=== PATIENT | female | born 1940 | race Caucasian/White ===

== ENCOUNTER 2020-01-09 12:29 | Inpatient (IN) | payer OTHER ==
[~2020-01-09] VITALS: Ht 165.1 cm; Wt 53.5 kg
--- NOTE | 2020-01-09 13:00 | NUR ---
SIMULATION SOFTWARE ENGINEER NOTE- 79 Y/O FEMALE ADMITTED FOR SUICIDAL IDEATION. PT ON 5150 DTS DUE TO STATING SHE WANTED TO CUT HERSELF AND JUMP OUT OF A MOVING CAR. ON FACE TO FACE ASSESSMENT, PT IS CALM COOPERATIVE THOUGH KEEPS STATING THART Addendum: 01/09/20 at 1532 by VIELKA RODRIGUEZ RN ...STATING THAT SHE HAS NO IDEA WHY SHES HERE. PT STATES SHE WAS 'ONLY JOKING' ABOUT JUMPING OUT OF A CAR OR OFF A BRIDGE.' STATES SHE DOESNT WANT TO KILL HERSELF. PT DENIES SI HI AH VH AT PRESENT. PT HAS ONLY PAST MEDICAL HX OF PLEURAL EFFUSIONS, HYSTERECTOMY AND CHOLECYSTECTOMY. STATED SHE ONCE TOOK ANTI HYPERTENSIVE RX BUT DOESNT RECALL. VS- B/P- 150/77, HR- 67 RR-16, T- 98.3 SATURATION 94%. PT ACCU CHECK IS 102. COVID TEST NEGATIVE MRSA SWAB DONE. SKIN INTACT, PHOTOGRAPH TAKEN FOR CHART. PT RIGHTS PAMPHLET GIVEN. DR GUILLEN AWARE OF ADMISSION AND ORDERS RECEIVED AND COMPLIED WITH. PT ORIENTED TO UNIT. PT REPEATEDLY STATES "I GOT TO GET OUT OF HERE. I DONT BELONG HERE." CALM THERAPEUTIC ENVIRONMENT PROVIDED. NEEDS ATTENDED. LUNCH PROVIDED.
[2020-01-09] MEDS ORDERED: ESCI10TA PO (13:15)
[2020-01-09] MEDS ORDERED: AMLO5TAB9 MT (13:15)
[2020-01-09] MEDS ORDERED: ESOM40CA52 MT (13:15)
[2020-01-09] MEDS ORDERED: SIMV-46 MT (13:15)
[2020-01-09] MEDS ORDERED: MAG HYDROX/AL HYDROX/SIMETH 30 ML UDC PO PRN (14:30)
[2020-01-09] MEDS ORDERED: BLOOD SUGAR DIAGNOSTIC 1 EACH STRIP IN ONE (14:30)
[2020-01-09] MEDS ORDERED: MAGNESIUM HYDROXIDE 30 ML UDC PO PRN (14:30)
[2020-01-09 16:00] VITALS: BP 125/66
[2020-01-09] MEDS: LORAZEPAM 0.5 MG TABLET PO PRN ×2 (17:05→23:06)
--- NOTE | 2020-01-09 17:05 | NUR ---
RN NOTE- PT ANXIOUS CONTINUALLY ON PHONE TELLING PEOPLE TO COME HELP REMOVE HER. PACING HALLS AGITATED. ATIVAN 0.5 MG GIVEN
[2020-01-09 20:17] VITALS: BP 130/75
[2020-01-09] MEDS: ACETAMINOPHEN 325 MG TABLET PO PRN (21:13)
--- NOTE | 2020-01-09 21:14 | NUR ---
GPS RN NOTES: HEADACHE PT C/O OF HEADACHE. OFFERED TYLENOL 650MG PO PRN ORDERED. PT AGREED AND TOLERATED MED WELL. CONTINUE TO MONITOR.
--- NOTE | 2020-01-09 23:12 | NUR ---
GPS RN NOTES: ANXIOUS PT C/O FEELING ANXIOUS. PT REQUESTED ATIVAN. OFFERED ATIVAN 0.5 MG PO PRN ORDERED. PT TOLERATED WELL. CONTINUE TO MONITOR
[2020-01-10 06:39] LABS: CHOLESTEROL 159 mg/dL (<200); HDL CHOLESTEROL 61 mg/dL (40-60); LDL 92 mg/dL (0-99); TRIGLYCERIDES 121 mg/dL (30-150)
[2020-01-10 06:46] LABS: ALBUMIN 2.9 g/dL (3.4-5.0); BILIRUBIN,TOTAL 0.5 mg/dL (0.2-1.0); CREATININE 0.8 mg/dL (0.6-1.3); POTASSIUM 3.8 mmol/L (3.5-5.1); TOTAL PROTEIN, SERUM 6.1 g/dL (6.4-8.2)
[2020-01-10 08:00] VITALS: BP 145/66
--- NOTE | 2020-01-10 08:10 | NUR ---
UR NOTE: AUTH# [id number] OBTAINED FROM AL Waggoner WITH [employer] UR [phone]. 8 DAYS APPROVED FROM 01/09/2020 TO 01/16/2020. BOARDER HAND ASSIGNED: CHAU Mcintyre @ [phone]. NO FAX#.
[2020-01-10] MEDS: AMLODIPINE BESYLATE 5 MG TABLET PO SCH (09:13)
--- NOTE | 2020-01-10 11:19 | NUR ---
FAMILY CONTACT: SW received a call from pts daughter Bartolome [phone] stating that pt is an alcoholic and needs inpatient rehab. She states that pt lives at home with her son and family is unable to care for her due to her alcoholism and manipulative behavior. Daughter states that pt often threatens suicide and last week attempted to jump out of her car. Daughter states that if pt does not accept rehab then the family will not be able to house and help her. Daughter states that if pt refuses to go to rehab then pt can be discharge to a homeless group home. SW stated that she will provide substance abuse intervention to pt and provide pt with this information.
--- NOTE | 2020-01-10 12:24 | NUR ---
INITIAL DISCHARGE PLAN: Pt wishes to be discharged to an Impatient Treatment program. SW will refer pt to [facility]. CHANDLER will help form a safe and proper discharge in collaboration with .
--- NOTE | 2020-01-10 12:51 | NUR ---
INDIVIDUAL INTERVENTION: Pt approached SW in a confused and disorganized state, asking where she is and how long she needs to be here. Pt did not recall speaking to SW earlier this day.
--- NOTE | 2020-01-10 15:44 | NUR ---
INDIVIDUAL INTERVENTION: Pt approached SW to ask why she is here and that she wants to go home. SW explained the reason she is here and also informed her that she was informed by the SW and MD several times today. SW explained to pt that she will be hospitalized several days and that she cannot be discharged home due to her children not being able to care for her due to her alcohol abuse and frequent suicidal statements. Pt appears confused and disorganized and has no insight into her mental illness. Pt also has limited boundaries and is constantly knocking on SW office.
[2020-01-10 16:00] VITALS: BP 125/73
[2020-01-10] MEDS: LORAZEPAM 0.5 MG TABLET PO PRN ×2 (16:34→22:35)
[2020-01-10] MEDS: GABAPENTIN 100 MG CAPSULE PO SCH (16:34)
--- NOTE | 2020-01-10 16:35 | NUR ---
RN NOTE: ANXIETY PT C/O INCREASED ANXIETY. REQUESTING ATIVAN. ATIVAN 0.5MG PRN PO
[2020-01-10] MEDS: SIMVASTATIN 20 MG TABLET PO SCH (17:06)
--- NOTE | 2020-01-10 19:38 | NUR ---
RN NOTES PATIENT AWAKE, WALKING HALLWAYS. ALERT AND ORIENTED X 3. SHOWS NO SIGNS OF ACUTE DISTRESS. FORGETFUL AT TIMES, DEMANDING, ANXIOUS, AND RESTLESS. PT IS AMBULATORY AND STEADY. BED IN LOWEST POSITION, LOCKED, AND WILL CONTINUE TO MONITOR.
[2020-01-10 20:40] VITALS: BP 145/66
[2020-01-10] MEDS ORDERED: GABAPENTIN 100 MG CAPSULE PO SCH (22:00)
[2020-01-10] MEDS: TEMAZEPAM 7.5 MG CAPSULE PO PRN (22:04)
--- NOTE | 2020-01-10 22:04 | NUR ---
RN NOTES PATIENT REQUEST MEDICATION TO HELP FOR SLEEP. GIVEN PRN RESTORIL AT 2204. WILL CONTINUE TO MONITOR.
--- NOTE | 2020-01-10 22:35 | NUR ---
RN NOTES PATIENT FELT ANXIOUS, ASKED FOR ATIVAN. GIVEN PRN ATIVAN AT 2235. WILL CONTINUE TO MONITOR
[2020-01-11 08:00] VITALS: BP 137/86
[2020-01-11] MEDS ORDERED: busPIRone 5 MG TABLET PO SCH (09:00)
[2020-01-11] MEDS: GABAPENTIN 100 MG CAPSULE PO SCH ×3 (09:03→21:02)
[2020-01-11] MEDS: AMLODIPINE BESYLATE 5 MG TABLET PO SCH (09:05)
[2020-01-11] MEDS: LORAZEPAM 0.5 MG TABLET PO PRN ×2 (13:00→19:55)
--- NOTE | 2020-01-11 13:01 | NUR ---
rn note :patient c/o anxiety medicated with ativan 0.5mg x1, will continue to monitor .
--- NOTE | 2020-01-11 14:17 | NUR ---
INDIVIDUAL INTERVENTION: Pt has no insight and is anxious. Pt has poor boundaries and has been constantly going to the nurses station to ask the same questions. SW is unable to have a meaningful conversation with pt as pt does not retain the information given to her and is not easily redirectable. Pt presents confused, disorganized, and disoriented.
[2020-01-11 16:00] VITALS: BP 146/76
[2020-01-11] MEDS: SIMVASTATIN 20 MG TABLET PO SCH (17:05)
[2020-01-11] MEDS: busPIRone 5 MG TABLET PO SCH (17:05)
[2020-01-11 19:36] LABS: APPEARANCE,URINE CLEAR (CLEAR); BILIRUBIN,URINE NEGATIVE (NEGATIVE); BLOOD, URINE TRACE-INTA Ery/uL (NEGATIVE); COLOR,URINE YELLOW (YELLOW); KETONES,URINE NEGATIVE (NEGATIVE); LEUKOCYTE ESTERASE ,URINE SMALL (NEGATIVE); NITRITE, URINE POSITIVE (NEGATIVE); PROTEIN,URINE NEGATIVE (NEGATIVE); UGLUCOSE NEGATIVE (NEGATIVE); UROBILINOGEN,URINE 0.2 EU/dL (0.2)
--- NOTE | 2020-01-11 19:55 | NUR ---
GPS RN NOTE: ANXIETY PT. C/O OF BEING ANXIOUS. ADMINISTERED ATIVAN 0.5 MG PO PRN ORDERED. WILL CONTINUE TO MONITOR FOR SAFETY AND BEHAVIOR.
[2020-01-11 20:06] VITALS: BP 115/64
[2020-01-11 20:13] LABS: BACTERIA,URINE 2+ /HPF (None Seen); RBC,URINE 0-2 /HPF (0-2); SQUAMOUS EPITHELIAL CELL,UR Few /HPF (None Seen); WBC,URINE 51-80 /HPF (0-3)
[2020-01-11] MEDS: ACETAMINOPHEN 325 MG TABLET PO PRN (22:21)
--- NOTE | 2020-01-11 22:21 | NUR ---
GPS RN NOTE: PAIN PT. C/O OF HEADACHE. ADMINISTERED TYLENOL 650 MG PO PRN ORDERED. WILL CONTINUE TO MONITOR FOR SAFETY AND BEHAVIOR
[2020-01-12 08:00] VITALS: BP 121/76
[2020-01-12] MEDS: busPIRone 5 MG TABLET PO SCH ×3 (08:30→16:26)
[2020-01-12] MEDS: AMLODIPINE BESYLATE 5 MG TABLET PO SCH (08:31)
[2020-01-12] MEDS: GABAPENTIN 100 MG CAPSULE PO SCH ×3 (08:31→21:38)
--- NOTE | 2020-01-12 08:42 | NUR ---
SNF REFERRAL: CHANDLER faxed SNF referral to [facility] Address: [address], [place] [address] for review.
--- NOTE | 2020-01-12 10:53 | NUR ---
SNF REFERRAL: SW received a call form gabriela Han at [facility] Address: [address] [place] [address] stating pt cannot be accepted due to her being an elopement risk and ambulatory.
[2020-01-12] MEDS: NITROFURANTOIN/NITROFURAN MAC 100 MG CAPSULE PO SCH ×2 (11:39→20:41)
--- NOTE | 2020-01-12 14:22 | NUR ---
REFERRAL: CHANDLER faxed referral to [facility] Address: [address] [place] [address] for review.
--- NOTE | 2020-01-12 14:26 | NUR ---
UR NOTE: SW contacted [employer] AIR CONDITIONING ENGINEER ASSIGNED: CHAU Shin [phone] and left a voicemail informing her pt needs SNF placement.
[2020-01-12] MEDS: SERTRALINE HCL 25 MG TABLET PO SCH (14:36)
--- NOTE | 2020-01-12 14:52 | NUR ---
INDIVIDUAL INTERVENTION: Pt has no insight and is anxious. Pt is cognitively impaired and has poor memory. SW is unable to engage pt in a meaningful conversation.
--- NOTE | 2020-01-12 15:52 | NUR ---
[facility]: SW received a call from [facility] Address: [address] [place] [address] stating that due to pts age and frequent hospitalizations within the last 6 months she does not qualify for inpatient treatment at their facility. Per intake, pts insurance also does not cover.
--- NOTE | 2020-01-12 15:54 | NUR ---
FAMILY CONTACT: CHANDLER contacted pts daughter Bartolome [phone] and attempted to leave a voicemail regarding pts discharge disposition. SW was unable to leave a voicemail due to mailbox being full. CHANDLER will try again at a later time.
[2020-01-12 16:00] VITALS: BP 133/74
--- NOTE | 2020-01-12 16:09 | NUR ---
FAMILY CONTACT: CHANDLER contacted pts daughter Janiya [phone] to discuss pts discharge disposition. CHANDLER was unable to leave a message due to mailbox being full.
--- NOTE | 2020-01-12 16:22 | NUR ---
FAMILY CONTACT: CHANDLER contacted pts daughter Bartolome [phone] and discussed pts discharge disposition. SW informed her that she is unable to place pt at a SNF or at a residential treatment facility. Daughter states that she is not responsible for pt and does not care what happens to her. Daughter states that none of pts children are willing to accept pt back into their homes and states that if need be pt can be discharged to a homeless retirement. CHANDLER recommended pt be discharged to a board and care or independent living and daughter stated that she is okay with that option and will stop making pts mortgage payments so that pt can have somewhere to live. Daughter states pt makes $1300 in SSI. SW stated that she will attempt to place pt at a board and care or independent living facility and daughter agreed. Addendum: 01/13/20 at 0819 by SURESH ARTEAGA CHANDLER informed daughter that abandoning pt can be reportable to APS. Daughter stated, "I know the law I cannot be held responsible for my adult mother."
[2020-01-12] MEDS: SIMVASTATIN 20 MG TABLET PO SCH (18:01)
[2020-01-12 20:00] VITALS: BP 149/85
[2020-01-12] MEDS: LORAZEPAM 0.5 MG TABLET PO PRN (20:41)
--- NOTE | 2020-01-12 20:44 | NUR ---
GPS RN NOTES: PT WAS ANXIOUS, RESTLESS, STATED "I WANT SOMETHING TO HELP MY ANXIETY NOW, AND SLEEPING PILLS LATER". ATIVAN 0.5MG 1 TAB GIVEN PO ORDERED AT 0840. WILL CONTINUE TO MONITOR.
[2020-01-12 20:45] VITALS: BP 149/85
[2020-01-12] MEDS: TEMAZEPAM 7.5 MG CAPSULE PO PRN (21:38)
[2020-01-12] MEDS ORDERED: MEMANTINE HCL 5 MG TABLET PO SCH (22:00)
[2020-01-13 07:04] VITALS: BP 149/85
[2020-01-13 08:00] VITALS: BP 127/77
--- NOTE | 2020-01-13 08:27 | NUR ---
APS: SW completed online APS report (Intake ID # [id number]) due to abandonment. Pts daughter informed SW that she nor pts children wanted to make themselves responsible for pt. SW explained that due to limited resources and pts lack of insurance coverage for placement SW is unable to place pt. Daughter stated that she is not responsible for pt and that she did not care where pt was placed and if need be pt can be discharged to a homeless mcfp. SW explained that pt has cognitive issues and daughter stated she did not care.
--- NOTE | 2020-01-13 08:30 | NUR ---
SNF REFERRAL: CHANDLER faxed SNF referral to [facility] ([facility]) [address] [address] for review.
[2020-01-13] MEDS: AMLODIPINE BESYLATE 5 MG TABLET PO SCH (08:55)
[2020-01-13] MEDS: busPIRone 5 MG TABLET PO SCH ×3 (08:55→16:52)
[2020-01-13] MEDS: GABAPENTIN 100 MG CAPSULE PO SCH ×4 (08:55→21:45)
[2020-01-13] MEDS: NITROFURANTOIN/NITROFURAN MAC 100 MG CAPSULE PO SCH ×2 (08:55→20:25)
--- NOTE | 2020-01-13 08:57 | NUR ---
GPS/RN-NOTES PT. C/O CONSTIPATION AND REQUESTING LAXATIVE. MOM 30ML GIVEN PRN ORDER WILL CONT. MONITORING FOR SAFETY.
[2020-01-13] MEDS: SERTRALINE HCL 25 MG TABLET PO SCH (12:21)
[2020-01-13 16:00] VITALS: BP 144/73
[2020-01-13] MEDS: SIMVASTATIN 20 MG TABLET PO SCH (17:21)
[2020-01-13 20:00] VITALS: BP 142/76
[2020-01-13] MEDS: QUETIAPINE FUMARATE 25 MG TABLET PO SCH (20:24)
[2020-01-13] MEDS: LORAZEPAM 0.5 MG TABLET PO PRN (21:02)
--- NOTE | 2020-01-13 21:03 | NUR ---
GPS RN NOTES: PT COMPLAINED OF ANXIETY AND RATES ANXIETY LEVEL 7/10. ATIVAN 0.5MG 1 TAB GIVEN PO ORDERED. PT CURRENTLY IN HALLWAY TALKING ON THE PHONE. WILL CONTINUE TO MONITOR.
[2020-01-13] MEDS: MEMANTINE HCL 5 MG TABLET PO SCH (21:45)
[2020-01-13] MEDS: TEMAZEPAM 7.5 MG CAPSULE PO PRN (22:25)
--- NOTE | 2020-01-14 06:38 | NUR ---
GPS RN CLOSING NOTE: PT LAYING IN BED SLEEPING. RESPIRATION EVEN AND UNLABORED WITH EQUAL RISE AND FALL OF THE CHEST ON ROOM AIR. NO S/S OF ANY DISTRESS AT THIS TIME. ENDORSING TO AM SHIFT.
[2020-01-14 08:00] VITALS: BP 135/67
[2020-01-14] MEDS: GABAPENTIN 100 MG CAPSULE PO SCH ×4 (08:30→22:30)
[2020-01-14] MEDS: busPIRone 5 MG TABLET PO SCH ×3 (08:30→16:36)
[2020-01-14] MEDS: AMLODIPINE BESYLATE 5 MG TABLET PO SCH (08:30)
[2020-01-14] MEDS: NITROFURANTOIN/NITROFURAN MAC 100 MG CAPSULE PO SCH ×2 (08:30→21:51)
[2020-01-14] MEDS: MEMANTINE HCL 5 MG TABLET PO SCH ×2 (08:30→21:51)
[2020-01-14] MEDS: SERTRALINE HCL 25 MG TABLET PO SCH (12:40)
[2020-01-14 16:00] VITALS: BP 144/74
[2020-01-14] MEDS: SIMVASTATIN 20 MG TABLET PO SCH (17:30)
[2020-01-14 20:00] VITALS: BP 128/64
[2020-01-14 20:26] VITALS: BP 128/64
[2020-01-14] MEDS: QUETIAPINE FUMARATE 25 MG TABLET PO SCH (21:05)
[2020-01-14] MEDS: TEMAZEPAM 7.5 MG CAPSULE PO PRN (23:20)
--- NOTE | 2020-01-14 23:21 | NUR ---
GPS RN NOTE: INSOMNIA PATIENT VERBALIZED THAT SHE IS UNABLE TO SLEEP & REQUESTED TO TAKE SLEEPING MEDICINE. PRN RESTORIL 7.5 MG 1 CAP PO GIVEN ORDERED. WILL CONTINUE TO MONITOR FOR EFFECTIVENESS.
[2020-01-15] MEDS: ACETAMINOPHEN 325 MG TABLET PO PRN (02:01)
--- NOTE | 2020-01-15 02:03 | NUR ---
GPS RN NOTE: PRN TYLENOL GIVEN FOR HEADACHE PATIENT VERBALIZED THAT SHE HAS HEADACHE & WANTED TO TAKE TYLENOL. PRN TYLENOL 650 MG PO GIVEN ORDERED. WILL CONTINUE TO MONITOR.
[2020-01-15 08:00] VITALS: BP 143/75
[2020-01-15] MEDS: NITROFURANTOIN/NITROFURAN MAC 100 MG CAPSULE PO SCH ×2 (08:20→21:14)
[2020-01-15] MEDS: busPIRone 5 MG TABLET PO SCH ×3 (08:20→16:53)
[2020-01-15] MEDS: AMLODIPINE BESYLATE 5 MG TABLET PO SCH (08:20)
[2020-01-15] MEDS: MEMANTINE HCL 5 MG TABLET PO SCH ×2 (08:20→21:14)
[2020-01-15] MEDS: GABAPENTIN 100 MG CAPSULE PO SCH ×4 (08:20→22:10)
--- NOTE | 2020-01-15 09:00 | NUR ---
MARIA E NOTE0 Addendum: 01/15/20 at 0944 by VIELKA RODRIGUEZ RN RN NOTE- 899 - PT IN BED COOPERATIVE CALM QUESTIONING MEDICATIONS THOUGH REMAINS MED COMPLIANT TALKING ABOUT DC AND CONCERNED 'NO ONE WANTS ME AROUND' STATES SHE 'NEEDS TO FIND A PLACE THAT WILL TAKE HER' STATED 'I NEED TO STOP DRINKING WINE'. ENCOURAGING INTERACTION AND ADLS. DENIES SI HI AH VH PO INTAKE FAIR
[2020-01-15] MEDS: SERTRALINE HCL 25 MG TABLET PO SCH (12:51)
[2020-01-15 16:00] VITALS: BP 142/73
[2020-01-15] MEDS: SIMVASTATIN 20 MG TABLET PO SCH (17:41)
[2020-01-15] MEDS: QUETIAPINE FUMARATE 25 MG TABLET PO SCH (20:03)
[2020-01-15 21:17] VITALS: BP 134/72
[2020-01-15] MEDS: TEMAZEPAM 7.5 MG CAPSULE PO PRN (23:11)
--- NOTE | 2020-01-15 23:13 | NUR ---
GPS RN NOTE: INSOMNIA PATIENT VERBALIZED THAT SHE IS UNABLE TO SLEEP & REQUESTED TO TAKE SLEEPING MEDICINE, PRN RESTORIL 7.5 MG 1 CAP PO GIVEN ORDERED. WILL CONTINUE TO MONITOR FOR THE EFFECTIVENESS.
[2020-01-16 08:00] VITALS: BP 122/57
[2020-01-16] MEDS: MEMANTINE HCL 5 MG TABLET PO SCH ×2 (08:01→20:26)
[2020-01-16] MEDS: busPIRone 5 MG TABLET PO SCH ×3 (08:01→17:03)
[2020-01-16] MEDS: NITROFURANTOIN/NITROFURAN MAC 100 MG CAPSULE PO SCH ×2 (08:01→20:25)
[2020-01-16] MEDS: AMLODIPINE BESYLATE 5 MG TABLET PO SCH (08:01)
[2020-01-16] MEDS: GABAPENTIN 100 MG CAPSULE PO SCH ×4 (08:01→22:04)
--- NOTE | 2020-01-16 08:24 | NUR ---
SNF REFERRAL: CHANDLER faxed SNF referral to Gume, student admissions clerk at [facility] Address: [address], [place] [address] for review.
--- NOTE | 2020-01-16 08:26 | NUR ---
UR NOTE: SW contacted the [employer] discharge planning line [phone] and left a voicemail requested assistance with placement.
--- NOTE | 2020-01-16 08:45 | NUR ---
INDIVIDUAL INTERVENTION: SW and SW Director met with pt at bedside to discuss pts placement options.
--- NOTE | 2020-01-16 09:00 | NUR ---
RN NOTE-M PT FAIRLY CONCERNED [facility]. STATES 'FAMILY DOESNT WANT ME IM A PAIN I DRINK WINE' ENCOURAGED PT AND ASSISTED. MED COMPLIANT INTAKE GOOD DENIES ALL
--- NOTE | 2020-01-16 09:00 | NUR ---
REFERRAL: CHANDLER faxed referral to [facility] Address: [address], [place] [address] for review.
--- NOTE | 2020-01-16 09:02 | NUR ---
UR NOTE: SW contacted [employer] FICTION AND NONFICTION AUTHOR ASSIGNED: CHAU Shin [phone] and completed concurrent review via voicemail.
--- NOTE | 2020-01-16 09:19 | NUR ---
SNF REFERRAL: CHANDLER faxed SNF referral to Molly implementation project coordinator at [facility] ([facility]) [address] [address] for review.
--- NOTE | 2020-01-16 09:29 | NUR ---
UR NOTE: CHANDLER received a call from [facility] LOOP SEWER ASSIGNED: CHAU Shin [phone] stating pt has been approved 3 additional days from 01/16/20-01/19/20 with review due on 01/19/20.
--- NOTE | 2020-01-16 11:05 | NUR ---
RN-CO: COVID TEST ORDERED A REQUIREMENT FOR SNF PLACEMENT.
--- NOTE | 2020-01-16 11:27 | NUR ---
FAMILY CONTACT: CHANDLER contacted pts daughter Bartolome [phone] and left a voicemail informing her [facility] is considering accepting pt and will be calling her to verify finances.
--- NOTE | 2020-01-16 11:49 | NUR ---
SNF REFERRAL: SW faxed SNF referral to [facility] ([facility]) Address: [address] [place] [address] for review.
--- NOTE | 2020-01-16 11:50 | NUR ---
SNF REFERRAL: SW received a call from Gume, home coordinator at [facility] Address: [address] [place] [address] stating pt was not accepted to the facility due to having no insurance coverage.
--- NOTE | 2020-01-16 12:24 | NUR ---
FAMILY CONTACT: CHANDLER received a call from pts daughter Bartolome [phone] confirming that she spoke with Molly, life skills coordinator volunteer at [facility]. She states she agrees with share of cost and agrees with discharge plan. CHANDELR informed her that she is waiting on confirmation from Molly for approval and also informed her that MARIAH has approved 3 additional days with review due on 01/16/20.
[2020-01-16] MEDS: SERTRALINE HCL 25 MG TABLET PO SCH (12:47)
--- NOTE | 2020-01-16 14:38 | NUR ---
APS: CHANDLER received a call from [facility] forensic social worker Marino [phone] requesting discharge information. SW stated that discharge plan has not been confirmed and SW will call once discharge plan has been confirmed.
[2020-01-16 16:00] VITALS: BP 144/90
[2020-01-16] MEDS: SIMVASTATIN 20 MG TABLET PO SCH (17:03)
[2020-01-16] MEDS: LORAZEPAM 0.5 MG TABLET PO PRN (18:41)
--- NOTE | 2020-01-16 18:41 | NUR ---
RN NOTE- ANXIETY/ PT ANXIOUS . ATIVAN 0.5 MG GIVEN
[2020-01-16 20:12] VITALS: BP 127/83
[2020-01-16] MEDS: QUETIAPINE FUMARATE 25 MG TABLET PO SCH (20:24)
[2020-01-17 08:00] VITALS: BP 140/65
--- NOTE | 2020-01-17 08:30 | NUR ---
SNF REFERRAL: CHANDLER received a call from Molly, research coordinator at [facility] (SNF) [address] [address] stating their company is currently working [facility] to reinstate their company into their system. Molly requested SW request authorization for SNF placement from [facility] or a denial letter so that facility can bill pts Medical. Per Molly pts daughter has already agreed to pay share of cost of $800.
[2020-01-17] MEDS: NITROFURANTOIN/NITROFURAN MAC 100 MG CAPSULE PO SCH ×2 (08:36→20:59)
[2020-01-17] MEDS: AMLODIPINE BESYLATE 5 MG TABLET PO SCH (08:36)
[2020-01-17] MEDS: MEMANTINE HCL 5 MG TABLET PO SCH ×2 (08:36→21:00)
[2020-01-17] MEDS: GABAPENTIN 100 MG CAPSULE PO SCH ×4 (08:36→21:07)
[2020-01-17] MEDS: busPIRone 5 MG TABLET PO SCH ×3 (08:36→16:24)
--- NOTE | 2020-01-17 10:49 | NUR ---
UR NOTE: CHANDLER contacted [facility] ([phone]) for authorization for [facility]. CHANDLER also faxed clinicals to ([phone]) for review. Reference #: [id number].
[2020-01-17] MEDS: SERTRALINE HCL 25 MG TABLET PO SCH (12:09)
[2020-01-17 16:00] VITALS: BP 137/72
[2020-01-17] MEDS: SIMVASTATIN 20 MG TABLET PO SCH (17:10)
[2020-01-17] MEDS: QUETIAPINE FUMARATE 25 MG TABLET PO SCH (20:13)
[2020-01-17 20:35] VITALS: BP 139/81
[2020-01-18 08:00] VITALS: BP 155/77
[2020-01-18] MEDS: AMLODIPINE BESYLATE 5 MG TABLET PO SCH (09:38)
[2020-01-18] MEDS: NITROFURANTOIN/NITROFURAN MAC 100 MG CAPSULE PO SCH (09:38)
[2020-01-18] MEDS: MEMANTINE HCL 5 MG TABLET PO SCH ×2 (09:39→21:15)
[2020-01-18] MEDS: busPIRone 5 MG TABLET PO SCH ×3 (09:39→18:29)
[2020-01-18] MEDS: GABAPENTIN 100 MG CAPSULE PO SCH ×4 (09:39→21:16)
--- NOTE | 2020-01-18 10:32 | NUR ---
UR NOTE: SW contacted affiliate marketing coordinator at [facility] Essence Serrano ([phone]) and left a voicemail for update on pts SNF authorization.
--- NOTE | 2020-01-18 10:33 | NUR ---
UR NOTE: SW contacted [employer] FULL FASHIONED GARMENT KNITTER ASSIGNED: CHAU Shin [phone] and completed concurrent review via voicemail.
[2020-01-18] MEDS: SERTRALINE HCL 25 MG TABLET PO SCH (13:30)
--- NOTE | 2020-01-18 14:31 | NUR ---
FAMILY CONTACT: SW received a call from pts son Prasanna ([phone]) requesting discharge information. Son stated that pt was living at home with him and that he no longer is able to take pt in and cannot assist her financially. Son states that his family has threatened to leave him if he takes pt back to his home. SW states that she is currently waiting on authorization from the insurance company for SNF placement.
[2020-01-18] MEDS: LORAZEPAM 0.5 MG TABLET PO PRN (15:33)
--- NOTE | 2020-01-18 15:44 | NUR ---
given ativan 0.5 mg po for anxiety.
[2020-01-18 16:00] VITALS: BP 151/73
[2020-01-18] MEDS: SIMVASTATIN 20 MG TABLET PO SCH (18:29)
[2020-01-18] MEDS: QUETIAPINE FUMARATE 25 MG TABLET PO SCH (20:10)
[2020-01-18 22:00] VITALS: BP 124/44
[2020-01-19 08:00] VITALS: BP 131/71
[2020-01-19] MEDS: SERTRALINE HCL 25 MG TABLET PO SCH ×2 (09:04→12:42)
[2020-01-19 09:05] VITALS: BP 131/71
[2020-01-19] MEDS: MEMANTINE HCL 5 MG TABLET PO SCH (09:05)
[2020-01-19] MEDS: busPIRone 5 MG TABLET PO SCH ×2 (09:05→12:42)
[2020-01-19] MEDS: GABAPENTIN 100 MG CAPSULE PO SCH ×2 (09:05→12:42)
[2020-01-19] MEDS: AMLODIPINE BESYLATE 5 MG TABLET PO SCH (09:05)
[2020-01-19] MEDS: LORAZEPAM 0.5 MG TABLET PO PRN (10:15)
--- NOTE | 2020-01-19 11:01 | NUR ---
UR NOTE: CHANDLER received a call from T customer solutions coordinator Niurka ([phone]) stating that pt was not authorized for SNF placement. CHANDLER requested denial letter be faxed to CHANDLER so that [facility] can bill [facility]. Per Niurka denial letter will be faxed tomorrow morning.
--- NOTE | 2020-01-19 11:06 | NUR ---
SNF CONTACT: CHANDLER contacted Molly, admissions consultant at [facility] (SNF) [address] [address] to inform her of denial for SNF placement from [facility]. Molly stated that pt can be transferred today. CHANDLER stated that she will fax denial letter as soon as she receives it from [facility]. Molly agreed.
--- NOTE | 2020-01-19 11:12 | NUR ---
DISCHARGE NOTE: Pt will be discharged at 2:00pm via [facility] to [facility] ([facility]) [address] [address] . Pts son Prasanna ([phone]) has been notified and agrees with discharge plan. Pts mood is anxious with congruent affect. Pt denied visual/auditory hallucinations and denied suicidal/homicidal ideation. Pt will address her substance use with Psychiatrist: Dr. Caryn Cole [address], [place] [address] [phone] and Screen Repairer Crusher: Dr. Marcial Ji Address: [address], [place] [address] . The multidisciplinary exit care form was done, printed, signed, and given to the patient.
--- NOTE | 2020-01-19 11:15 | NUR ---
UR NOTE: CHANDLER contacted [employer] DAIRY CHEMIST ASSIGNED: CHAU Shin [phone] and left a voicemail informing her pt will be discharged on this present day to [facility].
--- NOTE | 2020-01-19 11:51 | NUR ---
Dr. Cole gave an order to D/C hold and D/C to [facility] and to follow up with the psychiatrist Dr. Caryn Cole at [address] [place] [address] with the tel # of [phone] and to follow up with the successfactors consultant Dr. Marcial Ji at [address], [place] [address] with the tel# [phone]. Dr. Cole gave an order to continue same meds including prn. Pt. without distress, denies suicidal and homicidal.
--- NOTE | 2020-01-19 14:20 | NUR ---
GPS DISCHARGE NOTES Patient in stable condition. VS stable with no acute distress. Breathing even and unlabored on room air with no respiratory distress. Denies pain. No signs and symptoms of pain. Denies SI/HI. Skin assessment pictures taken and placed in chart. Medication reconciliation and discharge orders reviewed and explained to Patient. Patient verbalized understanding. All belongings with Patient. Patient will follow up with MD. Patient picked up by ambulance.
== END 2020-01-19 14:20 | DRG 885 ==
LOC: GPS 12:29
PROVIDERS: ADMIT Psychiatry & Neurology Psychosomatic Medicine; ATTEND Internal Medicine
DX: F33.3 Major depressive disorder, recurrent, severe with psychotic symptoms (principal); R45.851 Suicidal ideations; F23 Brief psychotic disorder; E44.0 Moderate protein-calorie malnutrition; N39.0 Urinary tract infection, site not specified; Z16.12 Extended spectrum beta lactamase (ESBL) resistance; Z68.1 Body mass index [BMI] 19.9 or less, adult; E78.5 Hyperlipidemia, unspecified; I10 Essential (primary) hypertension; F10.10 Alcohol abuse, uncomplicated; M62.81 Muscle weakness (generalized); R27.8 Other lack of coordination; F41.9 Anxiety disorder, unspecified; Z91.81 History of falling; R29.6 Repeated falls; F42.9 Obsessive-compulsive disorder, unspecified; F09 Unspecified mental disorder due to known physiological condition; Z88.2 Allergy status to sulfonamides
CPT/HCPCS: 36415; 80053-TC; 80061-TC; 81000-TC; 87081-TC; 87086-TC; 87186-TC; U0003-CS